=== PATIENT | female | born 1980 | race Caucasian/White ===

== ENCOUNTER 2018-09-12 15:14 | Emergency (ER) | payer MEDICAID ==
[2018-09-12 16:01] LABS: URINE BLOOD (Dip) POC Trace-intact (NEGATIVE); URINE GLUCOSE (Dip) POC Negative (NEGATIVE); URINE KETONES (Dip) POC Negative (NEGATIVE); URINE LEUKOCYTE EST (Dip) POC Negative (NEGATIVE); URINE NITRITE (Dip) POC Negative (NEGATIVE); URINE TOTAL PROTEIN POC Negative (NEGATIVE)
[2018-09-12] MEDS: ONDANSETRON (ODT) 4 MG TAB ODT (16:19)
[2018-09-12] MEDS: KETOROLAC 60 MG INJ IM (16:20)
[2018-09-12] MEDS: HYDROCODONE/APAP (5/325) TAB PO (16:20)
== END 2018-09-12 17:57 | disposition home or self-care (01) ==
LOC: FTE 15:14
DX: M54.5 Low back pain (principal)
CPT/HCPCS: 72100; 81003; 81025; 99284-25